=== PATIENT | female | born 1985 | race African-American/Black ===

== ENCOUNTER 2021-03-04 16:00 | Outpatient (CLI) | payer BC, SELFPAY ==
--- NOTE | ~2021-03-04 | US_ITS ---
US pelvic complete w TV DATE: 03/04/2021 16:51 INDICATION: Pelvic and perineal pain TECHNIQUE: Real-time imaging via transabdominal and transvaginal approaches COMPARISON: None FINDINGS: The uterus measures 11.4 centers height, 3.7 cm AP and 5.9 cm transverse dimension. Endomet rial echo complex measures 4.6 mm AP dimension, normal. An IUD is noted within the endometrial cavity . Right ovary measures 4.7 x 6.6 x 5.1 cm, with vascular flow. There is a large approximately 5.5 cm ri ght ovarian cyst. Left ovary measures 1.7 x 2.2 x 1.6 cm, with evidence of vascular flow. IMPRESSION: IUD within uterus 5.5 cm right ovarian cyst Reviewed, dictated and finalized at Location A. Reviewed, dictated and finalized at location A.
== END 2021-03-04 16:01 | disposition home or self-care (01) ==
PROVIDERS: PCP Nurse Practitioner Family; Visit Provider Student in an Organized Health Care Education/Training Program
DX: R10.2 Pelvic and perineal pain (principal); Z97.5 Presence of (intrauterine) contraceptive device; N83.201 Unspecified ovarian cyst, right side
CPT/HCPCS: 76830; 76856

== ENCOUNTER 2021-07-19 12:54 | Outpatient (CLI) | payer BC, SELFPAY ==
--- NOTE | ~2021-07-19 | US_ITS ---
EXAMINATION: US pelvic complete w TV DATE: 07/19/2021 13:51 INDICATION: Unspecified ovarian cyst. TECHNIQUE: Multiple transabdominal and transvaginal sonographic images of the pelvis were obtained. COMPARISON: Ultrasound 03/04/2021 FINDINGS: TRANSABDOMINAL ULTRASOUND: The uterus measures 9.3 x 3.8 x 5.7 cm. There is no free fluid in the pelvis. TRANSVAGINAL ULTRASOUND: The endometrial complex measures 7 mm in thickness. There is an intrauterine device in expected posit ion. There is a 3.4 cm subserosal fibroid in the uterine fundus. The right ovary measures 2.7 x 3.0 x 3.2 cm. The left ovary measures 2.7 x 2.6 x 2.7 cm. There is normal vascular flow in the ovaries. IMPRESSION: 1. Normal ovaries. 2. Intrauterine device in expected position. 3. Uterine fibroid. Reviewed, dictated and finalized at location A.
== END 2021-07-19 12:55 ==
PROVIDERS: Visit Provider Student in an Organized Health Care Education/Training Program
DX: N83.209 Unspecified ovarian cyst, unspecified side (principal); D25.9 Leiomyoma of uterus, unspecified; Z97.5 Presence of (intrauterine) contraceptive device
CPT/HCPCS: 76830; 76856

== ENCOUNTER 2023-12-27 08:44 | Emergency (ER) | payer BC, SELFPAY ==
[2023-12-27] VITALS (7 sets, daily range): BP systolic 121–140; BP diastolic 80–93; PULSE 72–78; RESP 9–17; TEMP 36.6; O2SAT 97–100
--- NOTE | ~2023-12-27 | XR_ITS ---
EXAMINATION: XR chest 2V DATE: 12/27/2023 09:23 INDICATION: Left-sided chest pain TECHNIQUE: PA and lateral views of the chest are obtained. COMPARISON: 12/04/2019 FINDINGS: The lungs are free of acute opacities. No pleural effusion or pneumothorax. The cardiomedia stinal silhouette is normal. The visualized bones and soft tissues are unremarkable. Surgical clips i n the right upper quadrant are likely from prior cholecystectomy. IMPRESSION: 1. No acute cardiopulmonary abnormality. Reviewed, dictated and finalized at location L. OMER EXPERIENCE ANALYST
--- NOTE | 2023-12-27 08:55 | ECG_ITS ---
Measurements Intervals Wolf Rate: 73 P: 20 OK: 146 QRS: 21 QRSD: 96 T: 13 QT: 367 QTc: 405 Interpretive Statements SINUS RHYTHM NONSPECIFIC T-WAVE ABNORMALITY INTERPRETATION BASED ON A DEFAULT AGE OF 40 YEARS COMPARED TO ECG 12/04/2019 14:13:14 NO SIGNIFICANT CHANGES Electronically Signed On 12-27-2023 11:27:37 NEUROPATHOLOGIST by Skip Edmonds M.D.
[2023-12-27 09:11] LABS: Basophils Percent Auto 0.4 % (0.2-1.2); Eosinophils Percent Auto 0.7 % (0-4.4); Hematocrit 38.7 % (37.0-47.0); Hemoglobin 12.8 g/dL (12.0-15.0); Immature Granulocyte Absolute 0.01 K/mm3 (0.00-0.031); Immature Granulocyte Percent A 0.2 % (0-0.5); Lymphocytes Absolute Auto 1.75 K/mm3 (0.9-3.2); Lymphocytes Percent Auto 38.8 % (18.3-44.2); Mean Corpuscular HGB Conc 33.1 g/dl (32-36); Mean Corpuscular Hemoglobin 30.1 pg (26-34); Mean Corpuscular Volume 91.1 fl (80-100); Mean Platelet Volume 10.2 fl (7.4-10.4); Monocytes Absolute Auto 0.2 K/mm3 (0.1-0.6); Monocytes Percent Auto 5.3 % (2.6-8.5); Neutrophils Absolute Auto 2.5 K/mm3 (1.3-6.7); Neutrophils Percent Auto 54.6 % (45.5-73.1); Platelet Count Result 267 k/mm3 (150-375); Red Blood Count 4.25 M/mm3 (4.2-5.4); Red Cell Distribution Width 12.4 % (11.5-14.5); White Blood Count 4.5 K/mm3 (4.5-10.0)
[2023-12-27 09:20] LABS: Alanine Aminotransferase 19 U/L (6-35); Alkaline Phosphatase 56 U/L (38-126); Anion Gap 6 mmol/L (8-16); Aspartate Amino Transferase 22 U/L (14-36); Bilirubin,Total 0.4 mg/dL (0.2-1.3); Blood Urea Nitrogen 7 mg/dL (7-17); Carbon Dioxide 28 mmol/L (22-30); Chloride 104 mmol/L (98-107); Estimated CRCL calculation 121 ml/min; Estimated Glomerular Filt Rate > 60; Glucose 104 mg/dL (65-110); Lipase 215 U/L (23-300); Potassium 3.8 mmol/L (3.4-5.0); Sodium 138 mmol/L (137-145)
[2023-12-27 09:23] LABS: Prothrombin Time 13.5 Seconds (11.1-14.7)
[2023-12-27 09:24] LABS: Partial Thromboplastin Time 29.1 SECONDS (22.3-36.8)
[2023-12-27 09:32] LABS: Troponin I < 0.012 ng/mL (0.000-0.034)
--- NOTE | 2023-12-27 09:38 | ED.GENADULT ---
HPI - General Adult General Chief complaint: Chest Pain Stated complaint: chest pain Time Seen by Provider: 12/27/23 09:03 Source: patient Mode of arrival: ambulatory Limitations: no limitations History of Present Illness HPI narrative: This is a 38-year-old female who presents to the ED with chief complaint of left-sided chest pain beginning this morning after waking up around 0630. Reports that the pain started radiating down the left arm which she has never had before which concerned her. She reports history of acid reflux and thought it could be this until the pain started radiating. She does note some tenderness in the area. 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 Denies fevers, chills, recent illness, shortness of breath, nausea, vomiting, syncope, sweats, rash. Denies cancer history, recent hospitalization, immobilization or history of blood clot. Related Data Allergies Allergy/AdvReac Type Severity Reaction Status Date / Time aspirin Allergy Unknown Hives Verified 12/27/23 09:34 Review of Systems Review of Systems: All systems as dictated in HPI [facility] Past Medical History Medical History (Updated 12/27/23 @ 11:26 by Joaquín Sung PA-C) Encounter for visit Heavy menstrual bleeding HSV (herpes simplex virus) infection Migraine Pseudotumor Surgical History Surgical History H/O section Hx of cholecystectomy Family History Family History Grandparent Diabetes mellitus Hypertension Mother Hypertension Grandparent Hypertension Diabetes mellitus Mother Hypertension Social History Social History (Updated 12/13/23 @ 13:23 by Hillary Davis) Smoking status: Never smoker Second hand tobacco smoke exposure: No Alcohol intake: current Substance use: never Do You Feel Safe in your Home?: Yes Lack of Transportation: No Lack of Food: Never True Current Housing: I Have Housing Concerned About Future Housing: No Difficulty Paying Gas/Electric Bills: No Difficulty Paying for Meds: No Currently Unemployed: No Education: High School Diploma/GED Gender identity (if verbalized by the patient): Female Exam Narrative: GENERAL: Well-appearing, well-nourished, and in no acute distress. HEAD: Normocephalic, atraumatic. EYES: PERRLA and EOMI. ENT: Nares clear, no rhinorrhea or epistaxis. Mucous membranes moist. Oropharynx without tonsillar hypertrophy exudate or other lesions. NECK: Supple. No adenopathy or masses. CHEST: No respiratory distress. Clear to auscultation. No wheezes rales or rhonchi . Mild tenderness to the left chest wall near the axilla. no rash. No bruising. HEART: Regular rate and rhythm. No murmur heard. Normal peripheral pulses. ABDOMEN: Soft, nontender, nondistended, normal active bowel sounds. MSK: Normal range of motion. No edema. SKIN: Warm, dry, no rash. NEURO: Alert and oriented x3. No focal deficits. PSYCH: Normal mood and affect. Course Vital Signs Vital signs: Vital Signs Temperature 98 F 12/27/23 08:51 Pulse Rate 78 12/27/23 08:51 Respiratory Rate 16 12/27/23 08:51 Blood Pressure 136/93 H 12/27/23 08:51 Pulse Oximetry 97 12/27/23 08:51 Oxygen Delivery Room Air 12/27/23 08:51 Temperature 98 F 12/27/23 08:51 Pulse Rate 72 12/27/23 12:15 Respiratory Rate 11 L 12/27/23 12:15 Blood Pressure 140/86 12/27/23 12:15 Pulse Oximetry 98 12/27/23 12:15 Oxygen Delivery Room Air 12/27/23 08:55 Medical Decision Making MDM Narrative Medical decision making narrative: This is a 38-year-old female who presents to the ED with chief complaint of chest pain beginning this morning. Vitals are normal. Exam is overall benign. There is some slight tenderness to the left chest wall near the
[2023-12-27] MEDS: KETOROLAC 15 MG/ML VIAL (*BKC) IV PUSH (10:30)
[2023-12-27 12:26] LABS: Troponin I < 0.012 ng/mL (0.000-0.034)
== END 2023-12-27 13:14 | disposition home or self-care (01) ==
PROVIDERS: Emergency Medicine; Emergency Provider Physician Assistant
DX: R07.89 Other chest pain (principal); Z90.49 Acquired absence of other specified parts of digestive tract; R94.31 Abnormal electrocardiogram [ECG] [EKG]
CPT/HCPCS: 36415; 71046; 80053; 83690; 84484; 85025; 85610; 85730; 93005; 96374; 99284; J1885

== ENCOUNTER 2023-12-31 14:44 | Outpatient (CLI) | payer BC, SELFPAY ==
--- NOTE | ~2023-12-31 | US_ITS ---
EXAMINATION: US pelvic complete w TV DATE: 12/31/2023 15:17 INDICATION: Excessive and frequent menstruation TECHNIQUE: Multiple transabdominal and endovaginal sonographic images of the pelvis were obtained. COMPARISON: 07/19/2021 FINDINGS: The uterus measures 12.7 x 4.4 x 5.4 cm. 2.8 cm isoechoic fibroid at the uterine fundus. 6 mm anechoi c nabothian cyst at the cervix. The endometrial complex measures 7 mm in thickness. The right ovary m easures 3.8 x 2.6 x 2.2 cm. The left ovary measures 4.3 x 2.8 x 2.3 cm. Posterior flow identified in the ovaries on color Doppler. There is no free fluid in the pelvis. IMPRESSION: 1. 2.8 cm uterine fibroid and 6 mm nabothian cyst at the cervix. Reviewed, dictated and finalized at location A. LLER HAND
== END 2023-12-31 14:45 ==
LOC: MICIMG 14:46
PROVIDERS: PCP Registered Nurse; Visit Provider Registered Nurse
DX: N92.0 Excessive and frequent menstruation with regular cycle (principal); D25.9 Leiomyoma of uterus, unspecified
CPT/HCPCS: 76830; 76856

== ENCOUNTER 2024-05-19 15:11 | Outpatient (CLI) | payer BC, SELFPAY ==
--- NOTE | ~2024-05-19 | XR_ITS ---
EXAM: XR shoulder RT min 2V DATE: 05/19/2024 15:28 HISTORY: No injury, right shoulder pain from sleeping on it . COMPARISON: None available. FINDINGS: Normal mineralization. No fracture or dislocation. No lytic or blastic lesion. Joint space s are maintained. No erosion or periosteal change. Soft tissues within normal limits. IMPRESSION: Normal right shoulder radiograph findings. Reviewed, dictated and finalized at location K.
--- NOTE | ~2024-05-19 | XR_ITS ---
EXAM: XR knee RT min 4V DATE: 05/19/2024 15:27 HISTORY: No injury right knee pain for 2 months . COMPARISON: None available. FINDINGS: Normal mineralization. No fracture or dislocation. No lytic or blastic lesion. Mild medial joint space narrowing. Mild tricompartment osteophytosis. Trace knee joint fluid. No erosion or zuri osteal change. Soft tissues within normal limits. IMPRESSION: Mild tricompartmental osteoarthritis of the right knee. Reviewed, dictated and finalized at location K.
== END 2024-05-19 15:12 ==
LOC: GOSHIMG 15:12
PROVIDERS: PCP Family Medicine; Visit Provider Family Medicine
DX: M25.511 Pain in right shoulder (principal); M17.11 Unilateral primary osteoarthritis, right knee
CPT/HCPCS: 73030; 73564

== ENCOUNTER 2025-09-07 09:24 | Emergency (ER) | payer BC, SELFPAY ==
--- NOTE | ~2025-09-07 | CT_ITS ---
EXAMINATION: CT brain wo con DATE: 09/07/2025 11:36 INDICATION: History of pseudotumor cerebri. Headache. TECHNIQUE: Computed tomography (CT) of the head was performed without intravenous contrast. The dose-length product was 605.33 mGy-cm. COMPARISON: 12/04/2019 FINDINGS: No acute intracranial hemorrhage. No mass effect. No midline shift. No hydrocephalus. No skull fracture. Visualized paranasal sinuses mastoid air cells are clear. IMPRESSION: 1. No acute intracranial hemorrhage. No mass effect. Reviewed, dictated and finalized at location Q.
[2025-09-07 09:38] VITALS: BP 125/59; PULSE 78; RESP 20; TEMP 36.2; O2SAT 98
--- OUTSIDE RECORDS SUMMARY | 2025-09-07 10:25 | XMS_ITS | Encounter Summary ---
Author Organization [facility] Address [address] [place] [address] Care Team Providers Care Spectroscopist Name Role Phone Charisma Fletcher MD Primary Care Provider [phone] Encounter Details Date Type Department Care Team (Latest Contact Info) Description 09/24/2018 Abstract [facility] , Trae Blake MD Social History Tobacco Use Types Packs/Day Years Used Date Smoking Tobacco: Never Assessed Comments Unknown Sex and Gender Information Value Date Recorded Sex Assigned at Not on file Legal Sex Female 11:09 AM CDT Gender Identity Not on file Sexual Orientation Not on file documented as of this encounter Plan of Treatment Not on file documented as of this encounter Visit Diagnoses Not on filedocumented in this encounter Care Teams Spectroscopist Relationship Specialty Start Date End Date Charisma Fletcher MD [address] [facility] [address] [place] [id number] PCP - General FAMILY PRACTICE 05/15/18 documented as of this encounter
--- OUTSIDE RECORDS SUMMARY | 2025-09-07 10:25 | XMS_ITS | Clinical Summary ---
Author Organization [facility] Address [address] [place] [address] Phone Care Team Providers Care Line Tender Flakeboard Name Role Phone Unavailable Primary Care Provider Unavailabl e Social History Tobacco Use Types Packs/Day Years Used Date Smoking Tobacco: Never Assessed Comments Unknown Sex and Gender Information Value Date Recorded Sex Assigned at Not on file Legal Sex Female 11:18 AM SOFTWARE ENGINEER WEB APPLICATIONS Gender Identity Not on file Sexual Orientation Not on file Plan of Treatment Health Maintenance Due Date Last Done Comments DTAP/TDAP/TD VACCINES (1 - Tdap) 2005 HEPATITIS B VACCINES (1 of 3 - 19+ 3-dose series) 08/19 HPV/Cotest (21-29) 2007 HPV VACCINES (1 - 3-dose SCDM series) 2013 CERVICAL CANCER SCREENING 2016 HPV/Cotest (30-65) 2016 PAP SMEAR 2016 INFLUENZA VACCINE (#1) 2025 Insurance BCBS BLUE ACCESS/TRUE BLUE PPO
--- OUTSIDE RECORDS SUMMARY | 2025-09-07 10:26 | XMS_ITS | Clinical Summary ---
Author Organization [facility] Address [address] [place] [address] Care Team Providers Care Doughnut Maker Name Role Phone Charisma Fletcher MD Primary Care Provider [phone] Social History Tobacco Use Types Packs/Day Years Used Date Smoking Tobacco: Never Assessed Comments Unknown Sex and Gender Information Value Date Recorded Sex Assigned at Not on file Legal Sex Female 11:09 AM CDT Gender Identity Not on file Sexual Orientation Not on file Last Filed Vital Signs Vital Sign Reading Time Taken Comments Blood Pressure 116/82 05/15/2018 10:00 AM CDT Pulse 80 05/15/2018 10:00 AM CDT Temperature - - Respiratory Rate - - Oxygen Saturation - - Inhaled Oxygen Concentration - - Weight 95.9 kg (211 lb 8 oz) 05/15/2018 10:00 AM CDT Height 154.9 cm (5' 1) 05/15/2018 10:00 AM CDT Body Mass Index 39.96 05/15/2018 10:00 AM CDT Plan of Treatment Health Maintenance Due Date Last Done Comments Cervical Cancer Screening Pa p Smear (Age 30 to 64) Every 3 Years 1986 Annual Physical 1989 Hepatitis C 2004 DTaP, Tdap and Td Vaccines ( 1 - Tdap) 2005 Hepatitis B Vaccines (1 of 3 - 19+ 3-dose series) 2005 HPV Vaccines (1 - 3-dose SCD M series) 2013 Cervical Cancer Screening Pa p with HPV Testing (Age 30 to 64) Every 5 Years 2016 Cervical Cancer Screening with HPV 2016 COVID-19 Vaccine (2023-2 5 season) 2025 Influenza Adult (#1) 2025 Meningococcal B Vaccine Aged Out No l onger eligible based on patient's age to complete this topic Meningococcal Vaccine Aged Out No alma rosa lance eligible based on patient's age to complete this topic Pneumococcal Vaccine: Pediat rics (0 to 5 Years) and At-Risk Patients (6 to 49 Years) Aged Out No longer eligible b ased on patient's age to complete this topic RSV Immunizations Under 20 Months Aged Out No longer eligible based on patient's age to complete this topic Insurance Care Teams Doughnut Maker Relationship Specialty Start Date End Date Charisma Fletcher MD [address] [facility] [address] [place] [address] PCP - General FAMILY PRACTICE 05/15/18
--- OUTSIDE RECORDS SUMMARY | 2025-09-07 10:26 | XMS_ITS | Clinical Summary ---
Author Organization [facility] Address [address] [place] [place] [address] Care Team Providers Care Activities Coordinator Name Role Phone Lucy Lopez SENIOR TECHNICAL RECRUITER-MASSAGE COORDINATOR Primary Care Provider Source Comments [facility],non-owned Affiliates and Associated Physician Practices is amultiple site organization consisting of ambulatory clinics and hospital sitesin [place], [place], [place] and [place]. This disclosure is being madepursuant to the Care Everywhere program and may not contain all information available regarding this patient. Last updated 18.[facility] Allergies No known active allergies Medications * Be aware that medications may not be up to date on this document. Alwaysverify current medications with the patient. lidocaine 2 % 20 mL, belladonna alk-phenobarbita l 16 MG/5ML 10 mL, aluminum & magnesium hydroxide 200-200 MG/5ML 30 mL Swish and spit 5 mL every 4 hours as needed. Active ondansetron (ZOFRAN) 4 MG tablet Take 1 Tab by mouth every 6 hours as needed for Nausea/Vomi ting. 4 Tab 0 07/07/2010 Active esomeprazole (NEXIUM) 20 MG capsule Take 1 Cap by mouth daily before breakfast. 30 Cap 0 07/07/2010 Active Social History Tobacco Use Types Packs/Day Years Used Date Smoking Tobacco: Never Assessed Comments Unknown Sex and Gender Information Value Date Recorded Sex Assigned at Not on file Legal Sex Female 9:14 AM SHOPPER Gender Identity Not on file Sexual Orientation Not on file Last Filed Vital Signs Vital Sign Reading Time Taken Comments Blood Pressure 119/75 10/30/2015 12:17 AM SHOPPER Pulse 95 10/30/2015 12:17 AM SHOPPER Temperature 36.8 C (98.3 F) 10/30/2015 12:17 AM SHOPPER Respiratory Rate 16 10/30/2015 12:17 AM SHOPPER Oxygen Saturation 100% 10/30/2015 12:17 AM SHOPPER Inhaled Oxygen Concentration - - Weight 81.6 kg (180 lb) 10/30/2015 12:17 AM SHOPPER Height 154.9 cm (5' 1) 10/30/2015 12:17 AM SHOPPER Body Mass Index 34.01 10/30/2015 12:17 AM SHOPPER Plan of Treatment Health Maintenance Due Date Last Done Comments HIV SCREENING 2001 HEPATITIS C SCREENING 08/30/2004 DTAP/TDAP/TD VACCINES (1 - Tdap) 2005 HEPATITIS B VACCINE (1 of 3 - 19+ 3-dose series) 2005 HPV VACCINE (1 - 3-dose SCDM series) 2013 DEPRESSION SCREENING 11/19/2024 COVID-19 VACCINE (1 - 2023-2 5 season) 2025 INFLUENZA VACCINE (#1) 2025 ZOSTER VACCINE (1 of 2) 2036 HIB VACCINE Aged Out No longer eligi ble based on patient's age to complete this topic MENINGOCOCCAL (Group B) VACC INE SHARED DECISION-MAKING Aged Out No longer eligibl e based on patient's age to complete this topic MENINGOCOCCAL GROUPS A/C/Y/W VACCINE Aged Out No longer eligible b ased on patient's age to complete this topic PNEUMOCOCCAL VACCINE Aged Out No long er eligible based on patient's age to complete this topic Insurance MEDICAID - OUT OF STATE ANTHEM Care Teams Activities Coordinator Relationship Specialty Start Date End Date Lucy Lopez, SENIOR TECHNICAL RECRUITER-MASSAGE COORDINATOR [address] [phone] PCP - General 09/12/19
--- OUTSIDE RECORDS SUMMARY | 2025-09-07 10:26 | XMS_ITS | Clinical Summary ---
Author Organization [facility] Address [address] [place] [address] Care Team Providers Care Animal Anatomist Name Role Phone Makenna Young DO Primary Care Provider [phone] Allergies Active Allergy Reactions Criticality Noted Date Comments Aspirin Hives,Rash Medium Medications acetaZOLAMIDE ER (DIAMOX SEQUAL) 500 mg capsule TAKE 1 CAPSULE BY MOUTH TWICE A DAY 60 capsule 2 03/26/2023 Active omeprazole (PriLOSEC) 20 mg capsule Take by mouth daily 09/17/2024 Active topiramate 50 mg capsule,extende d release 24hr Take 1 tablet by mouth daily 08/25/2024 Active Active Problems Problem Noted Date Diagnosed Date Vertigo 02/11/2020 Benign intracranial hypertension 07/22/2015 Overview (03/01/2017): Pseudotumor cerebri Surgical History Surgery Date Site/Laterality Comments CHOLECYSTECTOMY Cholecystectomy LUMBAR PUNCTURE WO INJECTION, DIAGNOSTIC 07/30/2015 N/A Medical History Medical History Date Comments Hx Other Medical Headache Hx Other Medical GERD Headache Family History Medical History Relation Name Comments Hypertension Mother Hypertension; Relation Name Status Comments Mother Social History Tobacco Use Types Packs/Day Years Used Date Smoking Tobacco: Never Smokeless Tobacco: Never Tobacco Cessation:Counseling Given: Not Answered Alcohol Use Standard Drinks/Week Comments No 0 (1 standard drink = 0.6 oz pur e alcohol) AUDIT-C Answer Date Recorded Frequency of Alcohol Consumption Not on file 11/17/2024 Q2: How many drinks containi ng alcohol do you have on a typical day when you are drinking? Patient does not drink Frequency of Binge Drinking Not on file 10/21 Comments Unknown Sex and Gender Information Value Date Recorded Sex Assigned at Not on file Legal Sex Female 3:46 AM SKIN PILER Gender Identity Not on file Sexual Orientation Not on file Obstetrics History Last Filed Vital Signs Vital Sign Reading Time Taken Comments Blood Pressure 102/68 11/17/2024 2:35 PM SKIN PILER Pulse 84 11/17/2024 2:35 PM SKIN PILER Temperature 36.6 C (97.8 F) 12/21/2016 1:15 PM SKIN PILER Respiratory Rate 16 11/17/2024 2:35 PM SKIN PILER Oxygen Saturation 96% 11/17/2024 2:35 PM SKIN PILER Inhaled Oxygen Concentration - - Weight 97.1 kg (214 lb) 11/17/2024 2:35 PM SKIN PILER Height 154.9 cm (5' 1) 11/17/2024 2:35 PM SKIN PILER Body Mass Index 40.43 11/17/2024 2:35 PM SKIN PILER Plan of Treatment Health Maintenance Due Date Last Done Comments Cervical Cancer Screening 1986 Depression Screening 1986 Hepatitis C Screening 1986 Varicella Vaccines (1 of 2 - 13+ 2-dose series) 1999 DTaP/Tdap/Td Vaccine (1 - Tdap) 08/21/2001 08/20/2001 Regular Well Visit/Exam 18-64 2004 HPV Vaccines (1 - 3-dose SCD M series) 2013 Covid-19 Vaccine (3 - 2024-2 6 season) 2025 07/15/2021, 06/24/2021 Influenza Vaccine (#1) 2025 Hepatitis B Screening Completed 04/07/1998 , 12/01/1997, 11/02/1997 Pneumococcal vaccine <65 Aged Out No longer eligible based on patient's age to complete this topic Insurance [employer] OOS Care Teams Animal Anatomist Relationship Specialty Start Date End Date Makenna Young DO PCP - General Family Medicine 11/17/24
[2025-09-07] MEDS: METOCLOPRAMIDE HCL INJ 10 MG/2 ML VIAL IV PUSH (11:55)
[2025-09-07] MEDS: ACETAMINOPHEN 500 MG TABLET 1000 MG PO (11:55)
[2025-09-07] MEDS: SODIUM CHLORIDE 0.9% IV 1,000 ML 999 ML IV CONT (11:55)
--- NOTE | 2025-09-07 12:06 | ED.HA ---
HPI - Headache General Chief Complaint: Headache Stated Complaint: headache Time Seen by Provider: 09/07/25 10:59 Source: patient Mode of arrival: ambulatory Limitations: no limitations History of Present Illness HPI Narrative: Patient is a 40-year-old female, w/ past medical history of pseudotumor cerebri, who presents to the ED with c/o LAMAS. Patient reports having an intermittent right-sided headache since around 6:00 a.m. this morning. Pain present throughout right-sided head, behind right eye. Reports history of frequent headaches related to pseudotumor cerebri. Has not taken anything for pain. Denies vision changes, fever, neck pain, photophobia, phonophobia, focal numbness or weakness. Related Data Home Medications ?Medication ?Instructions ?Recorded ?Confirmed ?Last Taken ?Type acetaminophen 325 mg capsule 325 mg PO Q6H PRN 05/19/24 01/19/25 Unknown History (Tylenol) levonorgestrel (Mirena) 1 device intrauterine ONCE 07/25/24 01/19/25 Unknown History Allergies Allergy/AdvReac Type Severity Reaction Status Date / Time aspirin Allergy Unknown Hives Verified 09/07/25 10:54 Review of Systems Review of Systems: All systems reviewed & are unremarkable except as noted in HPI. All systems reviewed & are unremarkable except as noted in HPI and below PMFSH Past Medical History Medical History Heavy menstrual bleeding Encounter for visit HSV (herpes simplex virus) infection Migraine Pseudotumor Surgical History Surgical History H/O section Hx of cholecystectomy Family History Family History Grandparent Diabetes mellitus Hypertension Mother Hypertension Grandparent Hypertension Diabetes mellitus Mother Hypertension Social History Social History Smoking status: Never smoker Second hand tobacco smoke exposure: No Alcohol intake: never Substance use: never Do You Feel Safe in your Home?: Yes Lack of Transportation: No Lack of Food: Never True Current Housing: I Have Housing Concerned About Future Housing: No Difficulty Paying Gas/Electric Bills: No Difficulty Paying for Meds: No Currently Unemployed: No Education: High School Diploma/GED Living arrangements: with family Gender identity (if verbalized by the patient): Female Exam Narrative: GENERAL: Well appearing, morbidly obese BMI of 41.2, non-toxic, in no acute distress. HEAD: Normocephalic, atraumatic. EYES: PERRL/EOMI, conjunctiva clear, no nystagmus. No pain with EOM NECK: No meningeal signs RESPIRATORY: Airway patent, respirations nonlabored. Clear to auscultation bilaterally, no rales, rhonchi, wheezing. CARDIOVASCULAR: Regular rate and rhythm without murmurs, rubs, or gallops. MUSCULOSKELETAL: Moves all extremities. No gross deformities. SKIN: Warm, dry, normal color. NEURO: A&O X3. Speech clear. Cranial nerves II-XII grossly intact. Steady gait. No ataxic movements. No focal deficits PSYCHIATRIC: Appropriate mood and affect. Normal interaction. Course Vital Signs Vital signs: Vital Signs Temperature 97.1 F L 09/07/25 09:38 Pulse Rate 78 09/07/25 09:38 Respiratory Rate 20 09/07/25 09:38 Blood Pressure 125/59 L 09/07/25 09:38 Pulse Oximetry 98 09/07/25 09:38 Oxygen Delivery Room Air 09/07/25 09:38 Temperature 97.1 F L 09/07/25 09:38 Pulse Rate 78 09/07/25 09:38 Respiratory Rate 20 09/07/25 09:38 Blood Pressure 125/59 L 09/07/25 09:38 Pulse Oximetry 98 09/07/25 09:38 Oxygen Delivery Room Air 09/07/25 09:38 MDM - Headache MDM Narrative Medical decision making narrative: Patient's headache was not sudden in onset or maximal in severity. There are no focal neurological deficits on exam. Subarachnoid hemorrhage is felt to be unlikely at this time. There is no history of fever and neck is supple on evaluation without meningeal signs. Meningitis is felt to be unlikely. No traumatic history or signs of trauma on evaluation. No vision changes or ocular signs of acute glaucoma. IOP evaluated and normal, [address] brain negative. Patient feeling much better after migraine cocktail. LAMAS resolved. Feels comfortable going home. Patient's headache is felt to be benign cephalgia and reasonable for further outpatient management. Advised patient to follow with PCP for further evaluation. Given reasons to return. D/C in stable condition. Medical Records Attestation: I reviewed the patient's medical records. Imaging Data Attestation: I personally reviewed and interpreted this imaging study as follows: Radiologist's impression: ITS Impressions Head CT 09/07/25 11:39 IMPRESSION: 1. No acute intracranial hemorrhage. No mass effect. Discharge Plan Discharge Clinical Impression: Migraine headache Qualifiers: Migraine type: unspecified Status migrainosus presence: without status migrainosus Intractability: not intractable Qualified Code(s): G43.909 - Migraine, unspecified, not intractable, without status migrainosus Patient Disposition: Home Condition: Stable Instructions: Antibiotic Form, Migraine Headache (ED), Acute Headache (ED) Additional Instructions: Continue Tylenol and ibuprofen as needed for pain. Get plenty of rest. Stay well hydrated. Recommend low light/ low stimulus environment, limiting screen time. Follow-up with your primary care doctor for further evaluation if needed. Return to the ED if you experience worsening or severe pain, severe dizziness, vision changes, unable to keep down food or drink, or any other symptoms of concern. Patient Language: [place]an Prescriptions: No Action Mirena 21 mcg/24 hr (8 yrs) 52 mg intrauterine device 1 device intrauterine ONCE Rx Instructions: as a single dose acetaminophen [Tylenol] 325 mg capsule 325 mg PO Q6H PRN (DME) CPAP titration See Rx Instructions .Route .MEDSUPPLY Qty: 1 0RF Rx Instructions: As directed (DME) AutoPAP supplies See Rx Instructions .Route .MEDSUPPLY Qty: 1 0RF Rx Instructions: Resmed AirSense 11 AutoPAP 5-15 cm H2O, CPAP mask/filters/tubing and heated humidity. omeprazole 20 mg capsule,delayed release(DR/EC) See Rx Instructions .ROUTE .COMPLEX Qty: 90 1RF Dose Instruction: TAKE 1 CAPSULE BY MOUTH EVERY DAY Rx Instructions: TAKE 1 CAPSULE BY MOUTH EVERY DAY topiramate 50 mg capsule,extended release 24hr See Rx Instructions .ROUTE .COMPLEX Qty: 90 1RF Dose Instruction: TAKE 1 CAPSULE BY MOUTH EVERY DAY Rx Instructions: TAKE 1 CAPSULE BY MOUTH EVERY DAY Follow-up/Referrals: Makenna Young DO [Primary Care Provider, [facility]] Time of Disposition: 12:44
[2025-09-07] MEDS: KETOROLAC 30 MG/ML VIAL (*BKC) IV PUSH (12:13)
[2025-09-07] MEDS: dexAMETHasone SOD PHOS INJ 10 MG/ML 1 ML VIAL IV PUSH (12:14)
[2025-09-07 13:20] VITALS: BP 114/78; PULSE 86; RESP 15; O2SAT 99
== END 2025-09-07 13:21 | disposition home or self-care (01) ==
PROVIDERS: Emergency Provider Physician Assistant; PCP Family Medicine
DX: G43.909 Migraine, unspecified, not intractable, without status migrainosus (principal)
CPT/HCPCS: 70450; 96361; 96374; 96375; 99284; A9270; J1100; J1200; J1885; J2765; J7030

== ENCOUNTER 2025-09-29 15:15 | Outpatient (CLI) | payer BC, SELFPAY ==
--- NOTE | ~2025-09-29 | US_ITS ---
EXAM/PROCEDURE: US pelvic complete w TV HISTORY: Z30.431 - Encounter for routine checking of intrauterine ... COMPARISON: December 31, 2023 TECHNIQUE: Pelvic ultrasound performed FINDINGS: The uterus measures 13.9 x 4.3 x 5.0 cm and appears normal. Previously described fibroid is not seen on this exam likely associated limitations of ultrasound. Intrauterine device is seen within the endometrial cavity. Endometrial stripe thickness approximately 3 mm Right ovary: 3.0 x 2.0 x 3.7 cm Left ovary: 2.9 x 2.2 x 2.9 cm Both ovaries appear normal in echotexture and vascular flow. No free fluid or suspicious masses seen. IMPRESSION: No acute findings. Intrauterine device seen within the endometrial canal. Reviewed, dictated and finalized at location A. CAL RECORDS RECEPTIONIST
== END 2025-09-29 15:16 | disposition home or self-care (01) ==
LOC: MICIMG 15:16
PROVIDERS: PCP Nurse Practitioner Obstetrics & Gynecology; Visit Provider Nurse Practitioner Obstetrics & Gynecology
DX: Z30.431 Encounter for routine checking of intrauterine contraceptive device (principal); R10.20 Pelvic and perineal pain unspecified side
CPT/HCPCS: 76830; 76856

== ENCOUNTER 2025-10-08 09:48 | Emergency (ER) | payer BC, SELFPAY ==
--- NOTE | ~2025-10-08 | CT_ITS ---
EXAM/PROCEDURE: CT abdomen pelvis w con HISTORY: generalized abdominal pain, n/v, hx cholecystectomy COMPARISON: None available. TECHNIQUE: IV contrast enhanced CT of abdomen and pelvis performed FINDINGS: The bowel gas pattern is nonobstructive with no free air or pneumatosis. Trace amount of free fluid in the lower pelvis. Complex uterus and adnexal regions appear normal. IUD in good position. No hydroureteronephrosis. Hyperattenuating foci throughout both renal collecting systems may represent early excretion of contrast. Small nonobstructing kidney stones may be present. No obstructing ureteral stones and no urinary bladder stones. Appendix and aorta normal size. Cholecystectomy clips. Liver spleen pancreas adrenal glands and stomach appear within normal limits. Moderate amount of stool extends to the cecum. The stomach is unopacified and nondistended but no obvious acute abnormality seen. Possible mild distal esophageal wall thickening. IMPRESSION: No acute surgical abnormality. Mild thickened appearance of the distal esophageal wall may be associated with esophagitis. Other findings as above. Reviewed, dictated and finalized at location A. STFEEDING PEER COUNSELOR IMPRESSION: No acute surgical abnormality. Mild thickened appearance of the distal esophage al wall may be associated with esophagitis. Other findings as above.
[2025-10-08 10:15] VITALS: BP 125/79; PULSE 77; RESP 16; TEMP 36.6; O2SAT 99
[2025-10-08 11:21] LABS: Hematocrit 40.2 % (37.0-47.0); Hemoglobin 13.5 g/dL (12.0-15.0); Immature Granulocyte Percent A 0.2 % (0-0.5); Lymphocytes Absolute Auto 2.03 K/mm3 (0.9-3.2); Mean Corpuscular HGB Conc 33.6 g/dl (32-36); Mean Corpuscular Hemoglobin 30.8 pg (26-34); Mean Corpuscular Volume 91.6 fl (80-100); Nucleated Red Blood Cells Absolute Auto 0.000 K/mm3 (0.0-0.012); Nucleated Red Blood Cells Perc 0.0 % (0.0-0.2); Platelet Count Result 272 k/mm3 (150-375); Red Blood Count 4.39 M/mm3 (4.2-5.4); White Blood Count 5.7 K/mm3 (4.5-10.0)
[2025-10-08 11:26] LABS: BEDSIDEPREGUCG Negative (Negative)
[2025-10-08 11:34] LABS: Add Urine Microscopic? NO; Appearance Urine Clear (Clear); Glucose Urine UA Negative (Negative); Leukocyte Esterase Ur Negative LEU/UL (Negative); Nitrate Urine Negative (Negative); Specific Grav Ur 1.019 (1.001-1.035)
[2025-10-08 11:45] LABS: Alanine Aminotransferase 16 U/L (6-35); Albumin Level 4.4 g/dL (3.5-5.1); Alkaline Phosphatase 64 U/L (38-126); Anion Gap 6 mmol/L (4-12); Aspartate Amino Transferase 20 U/L (14-36); Bilirubin,Total 0.6 mg/dL (0.2-1.3); Blood Urea Nitrogen 9 mg/dL (7-17); Calcium 8.9 mg/dL (8.4-10.2); Carbon Dioxide 26 mmol/L (22-30); Chloride 106 mmol/L (98-107); Estimated CRCL calculation 100 ml/min; Estimated Glomerular Filt Rate > 60; Glucose 96 mg/dL (65-110); Lipase 121 U/L (23-300); Potassium 3.7 mmol/L (3.4-5.0); Sodium 138 mmol/L (137-145); Total Protein 7.7 g/dL (6.3-8.2)
[2025-10-08 11:57] VITALS: BP 104/80; PULSE 85; RESP 15; O2SAT 99
--- NOTE | 2025-10-08 13:05 | ED.GENADULT ---
HPI - General Adult General Chief complaint: Abdominal Pain Stated complaint: abdominal pain Time Seen by Provider: 10/08/25 11:55 History of Present Illness HPI narrative: 40-year-old female present to the emergency department for evaluation for abdominal pain with associated nausea without vomiting. Patient did have follow-up with primary care physician and had been on antibiotics for urinary tract infection. Patient presents to the emergency department today stating she was having persistent abdominal pain symptoms. Patient does have prior history of gastritis and does take omeprazole. Patient has not had a recent GI scope. Related Data Home Medications ?Medication ?Instructions ?Recorded ?Confirmed ?Last Taken ?Type acetaminophen 325 mg capsule 325 mg PO Q6H PRN 05/19/24 10/02/25 Unknown History (Tylenol) levonorgestrel (Mirena) 1 device intrauterine ONCE 07/25/24 10/02/25 Unknown History Allergies Allergy/AdvReac Type Severity Reaction Status Date / Time aspirin Allergy Unknown Hives Verified 10/08/25 10:18 Review of Systems Review of Systems: All systems reviewed & are unremarkable except as noted in HPI and below PMFSH Past Medical History Medical History Heavy menstrual bleeding Encounter for visit HSV (herpes simplex virus) infection Migraine Pseudotumor Surgical History Surgical History H/O section Hx of cholecystectomy Family History Family History Grandparent Diabetes mellitus Hypertension Mother Hypertension Grandparent Hypertension Diabetes mellitus Mother Hypertension Social History Social History Smoking status: Never smoker Second hand tobacco smoke exposure: No Alcohol intake: never Substance use: never Do You Feel Safe in your Home?: Yes Lack of Transportation: No Lack of Food: Never True Current Housing: I Have Housing Concerned About Future Housing: No Difficulty Paying Gas/Electric Bills: No Difficulty Paying for Meds: No Currently Unemployed: No Education: High School Diploma/GED Living arrangements: with family Gender identity (if verbalized by the patient): Female Exam Narrative: APPEARANCE: Well appearing, no pain, no distress, well-nourished. HEAD: normocephalic, atraumatic. EYES: PERRLA/EOMI, conjunctivae clear. NOSE: Normal no drainage EARS:TMS clear with good light reflex. THROAT: Pharynx clear, no exudate. NECK: Supple. No adenopathy, no masses. RESPIRATORY: Airway patent, respirations nonlabored. Clear to auscultation bilaterally, no rales, rhonchi, wheezing. CARDIOVASCULAR: Regular rate and rhythm without murmurs rubs or gallops. ABDOMINAL: Mild epigastric tenderness to palpation, normal bowel sounds, no peritonitis MUSCULOSKELETAL: Moves all extremities. Strength/ROM intact, No edema, No calf tenderness. NEURO: Alert. Cranial nerves II through XII intact. Good gait. Good coordination SKIN: Warm, dry. Normal Color Course Vital Signs Vital signs: Vital Signs Temperature 97.8 F 10/08/25 10:15 Pulse Rate 77 10/08/25 10:15 Respiratory Rate 16 10/08/25 10:15 Blood Pressure 125/79 10/08/25 10:15 Pulse Oximetry 99 10/08/25 10:15 Oxygen Delivery Room Air 10/08/25 10:15 Temperature 97.8 F 10/08/25 10:15 Pulse Rate 70 10/08/25 15:55 Respiratory Rate 16 10/08/25 15:55 Blood Pressure 124/83 10/08/25 15:55 Pulse Oximetry 100 10/08/25 15:55 Oxygen Delivery Room Air 10/08/25 10:15 Medical Decision Making [facility] Narrative Medical decision making narrative: 40-year-old female present to the emergency department for nausea and abdominal discomfort. Patient is currently afebrile with no leukocytosis and hemoglobin of 13.5. Patient has normal creatinine, normal T bili AST ALT and alk-phos and lipase. UA was negative for infection. CT scan was ordered to evaluate for additional pathology including colitis, diverticulitis, appendicitis, pancreatitis. CT scan did show evidence of esophagitis with no other acute findings. Patient was treated with a GI cocktail, IV Protonix and IV fluids. On re-evaluation patient states she does feel significantly improved. Patient is currently taking omeprazole 20 mg b.i.d.. Patient has not had recent follow-up with GI. Patient will be prescribed additional Carafate and recommended to have follow-up with GI. She was comfortable plan for discharge. All questions concerns were addressed patient was well-appearing at time of discharge Differential Diagnosis Differential Diagnosis: Colitis, diverticulitis, acute cholecystitis, appendicitis, gastritis, esophagitis Vital Signs Vital Signs: Vital Signs Temperature 97.8 F 10/08/25 10:15 Pulse Rate 77 10/08/25 10:15 Respiratory Rate 16 10/08/25 10:15 Blood Pressure 125/79 10/08/25 10:15 Pulse Oximetry 99 10/08/25 10:15 Oxygen Delivery Room Air 10/08/25 10:15 Temperature 97.8 F 10/08/25 10:15 Pulse Rate 70 10/08/25 15:55 Respiratory Rate 16 10/08/25 15:55 Blood Pressure 124/83 10/08/25 15:55 Pulse Oximetry 100 10/08/25 15:55 Oxygen Delivery Room Air 10/08/25 10:15 Lab Data Lab results reviewed: Yes I reviewed the patient's lab results. 10/08/25 11:16 10/08/25 11:16 Labs: Lab Results 10/08/25 10/08/25 10/08/25 Range/Units 11:16 11:23 11:24 WBC 5.7 (4.5-10.0) K/mm3 RBC 4.39 (4.2-5.4) M/mm3 Hgb 13.5 (12.0-15.0) g/dL Hct 40.2 (37.0-47.0) % MCV 91.6 (80-100) fl MCH 30.8 (26-34) pg MCHC 33.6 (32-36) g/dl RDW 12.1 (11.5-14.5) % Plt Count 272 (150-375) k/mm3 MPV 10.1 (7.4-10.4) fl Immature Gran % (Auto) 0.2 (0-0.5) % Neut % (Auto) 57.8 (45.5-73.1) % Lymph % (Auto) 35.8 (18.3-44.2) % [place] % (Auto) 5.1 (2.6-8.5) % Eos % (Auto) 0.7 (0-4.4) % Baso % (Auto) 0.4 (0.2-1.2) % Lymph # (Auto) 2.03 (0.9-3.2) K/mm3 [place] # (Auto) 0.3 (0.1-0.6) K/mm3 Eos # (Auto) 0.0 (0-0.3) K/mm3 Baso # (Auto) 0.0 (0.0-0.1) K/mm3 Abs Immat Gran (auto) 0.01 (0.00-0.031) K/mm3 Absolute Neuts (auto) 3.3 (1.3-6.7) K/mm3 Absolute Nucleated RBC 0.000 (0.0-0.012) K/mm3 Nucleated RBC % 0.0 (0.0-0.2) % Sodium 138 (137-145) mmol/L Potassium 3.7 (3.4-5.0) mmol/L Chloride 106 (98-107) mmol/L Carbon Dioxide 26 (22-30) mmol/L Anion Gap 6 (4-12) mmol/L BUN 9 (7-17) mg/dL Creatinine 0.70 (0.7-1.0) mg/dL Estim Creat Clear Calc 100 ml/min Estimated GFR > 60 (59 - ) Glucose 96 (65-110) mg/dL Calcium 8.9 (8.4-10.2) mg/dL Total Bilirubin 0.6 (0.2-1.3) mg/dL AST 20 (14-36) U/L ALT 16 (6-35) U/L Alkaline Phosphatase 64 (38-126) U/L Total Protein 7.7 (6.3-8.2) g/dL Albumin 4.4 (3.5-5.1) g/dL Lipase 121 (23-300) U/L Urine Color Yellow (Yellow) Urine Appearance Clear (Clear) Urine pH 7.5 (5.0-9.0) Ur Specific [place] 1.019 (1.001-1.035) Urine Protein Negative (Negative) mg/dL Urine Glucose (UA) Negative (Negative) mg/dL Urine Ketones Negative (Negative) mg/dL Ur Blood (Man) Negative (Negative) Urine Nitrate Negative (Negative) Urine Bilirubin Negative (Negative) Urine Urobilinogen 1.0 (<2.0) mg/dL Leukocyte Esterase Rfl Negative (Negative) THU/UL POC Urine HCG, Qual Negative (Negative) Imaging Data Radiologist's impression: Impressions Abdomen/Pelvis CT 10/08/25 12:43 IMPRESSION: No acute surgical abnormality. Mild thickened appearance of the distal esophageal wall may be associated with esophagitis. Other findings as above. Discharge Plan Discharge Clinical Impression: Esophagitis Patient Disposition: Home Condition: Stable Instructions: Antibiotic Form, Diet for Stomach Ulcers and Gastritis (ED), Abdominal Pain (ED) Additional Instructions: Continue your omeprazole. Follow a bland diet. Continue to avoid alcohol and NSAIDs. Carafate as directed for epigastric burning. Have close follow-up with GI. If you have any worsening symptoms then please call or return to the emergency department. Patient Language: [place] Prescriptions: New sucralfate 100 mg/mL suspension 3 g PO BID Qty: 414 0RF No Action Mirena 21 mcg/24 hr (8 yrs) 52 mg intrauterine device 1 device intrauterine ONCE Rx Instructions: as a single dose acetaminophen [Tylenol] 325 mg capsule 325 mg PO Q6H PRN omeprazole 20 mg capsule,delayed release(DR/EC) See Rx Instructions .ROUTE BID Qty: 180 1RF Dose Instruction: TAKE 1 CAPSULE BY MOUTH EVERY DAY Rx Instructions: TAKE 1 CAPSULE BY MOUTH EVERY DAY twice a day; topiramate 25 mg tablet 25 mg PO BID Qty: 180 1RF (DME) CPAP titration See Rx Instructions .Route .MEDSUPPLY Qty: 1 0RF Rx Instructions: As directed (DME) AutoPAP supplies See Rx Instructions .Route .MEDSUPPLY Qty: 1 0RF Rx Instructions: Resmed AirSense 11 AutoPAP 5-15 cm H2O, CPAP mask/filters/tubing and heated humidity. Follow-up/Referrals: Martin Grubbs MD [Physician, Gastroenterology] Makenna Young DO [Primary Care Provider, Family Practice]
[2025-10-08] MEDS: LACTATED RINGERS 1,000 ML 999 ML IV CONT (14:27)
[2025-10-08] MEDS: PANTOPRAZOLE SODIUM IV 40 MG VIAL IV PUSH (14:28)
[2025-10-08] MEDS: ONDANSETRON INJ 4 MG/2 ML VIAL IV PUSH (14:28)
[2025-10-08] MEDS: BELLADONNA ALK/PHENOB ELIX 10 ML, MAG HYDROX/ALUMINUM HYD/SIMETH 30 ML, LIDOCAINE 2% VI... PO (14:28)
[2025-10-08 15:55] VITALS: BP 124/83; PULSE 70; RESP 16; O2SAT 100
== END 2025-10-08 15:57 | disposition home or self-care (01) ==
PROVIDERS: Physician Assistant; Emergency Provider Emergency Medicine; PCP Family Medicine
DX: K20.90 Esophagitis, unspecified without bleeding (principal); Z90.49 Acquired absence of other specified parts of digestive tract; Z97.5 Presence of (intrauterine) contraceptive device
CPT/HCPCS: 36415; 74177; 80053; 81003; 81025; 83690; 85025; 96361; 96374; 96375; 99284; A9270; J2405; J2470; J7120; Q9967